=== PATIENT | male | born 1965 | race Caucasian/White ===

== ENCOUNTER 2017-11-08 08:06 | Day surgery (SDC) | payer BC, OTHER ==
[~2017-11-08 08:06] MED LIST: Lactated Ringers 1,000 ML IV SCH; Midazolam 1 MG/ML 2 ML SDV ONE; Propofol 200 MG/20 ML SDV ONE; fentaNYL 100 MCG/2 ML SDV ONE
--- NOTE | 2017-11-09 10:48 | OR ---
DATE OF PROCEDURE: 11/08/2017 PREOPERATIVE DIAGNOSIS: Colon cancer screening. POSTOPERATIVE DIAGNOSES: Diverticulosis. PROCEDURE: Colonoscopy to the cecum. SURGEON: Jimmy Vallecillo MD. ANESTHESIA: IV anesthesia with monitored anesthesia care. INDICATIONS: This 52-year-old white male is referred for a colonoscopy for colon cancer screening. He has never had a colonoscopic exam. I counseled him for the procedure, including risks and alternatives. He gave his informed consent to proceed. DESCRIPTION OF PROCEDURE: The patient was placed in the left lateral decubitus position. IV anesthesia was administered by the Anesthesia service. Time-out was held. A rectal exam was performed, which was unremarkable. The flexible video Olympus colonoscope was introduced through his anus, up his rectum, and out of his colon all way to the cecum. En route, we saw several left-sided diverticula. There was no bleeding or inflammation associated with any of them. Once the cecum was reached, the scope was slowly withdrawn, examining the mucosa throughout. No additional mucosal abnormalities were noted. The scope was retroflexed in the rectum with the distal rectum appearing unremarkable. The scope was straightened and removed. He tolerated the procedure well. Jimmy Vallecillo MD /[id number]
== END 2017-11-08 10:59 | disposition home or self-care (01) ==
LOC: JP.SDS 08:06
PROVIDERS: ATTEND Surgery
DX: Z12.11 Encounter for screening for malignant neoplasm of colon (principal); K57.30 Diverticulosis of large intestine without perforation or abscess without bleeding; Z88.6 Allergy status to analgesic agent; Z91.040 Latex allergy status; Z88.8 Allergy status to other drugs, medicaments and biological substances
CPT/HCPCS: 45378; J2250; J2704; J3010; J7120

== ENCOUNTER 2019-03-29 16:31 | Emergency (ER) | payer BC, OTHER ==
[2019-03-29] MEDS ORDERED: cefTRIAXone 1 GM in Sodium Chloride 0.9% 50 ML IV ONE (17:19)
[2019-03-29] MEDS ORDERED: Sodium Chloride 0.9% 10 ML Syringe FLUSH PRN (17:19)
[2019-03-29] MEDS ORDERED: Acetaminophen/oxyCODONE 325-5 MG Tab PO ONE (17:23)
--- NOTE | 2019-03-29 17:29 | EDM.PDOC ---
ED HPI GENERAL MEDICAL PROBLEM - General Chief Complaint: ENT Problem Stated Complaint: IV ANTIBOTICS FOR TOOTH Time Seen by Provider: 03/29/19 17:23 Source of Information: Reports: Patient History Limitations: Reports: No Limitations - History of Present Illness INITIAL COMMENTS - FREE TEXT/NARRATIVE: Pt was sent by Dr Mcnamara to have Iv antibiotics. He has an abcess of one of his front terth and now has developed marked facial swelling. Onset: Today, Sudden Duration: Hour(s): Location: Reports: Face, Other ( dental infection) Associated Symptoms: Reports: Fever/Chills Left Face/Facial Pain Score (Numeric/FACES): 9 - Related Data Allergies Allergy/AdvReac Type Severity Reaction Status Date / Time latex Allergy Mild Rash Verified 03/29/19 17:00 diphenhydramine Allergy Agitation Verified 03/29/19 17:00 [From Benadryl] indomethacin AdvReac Mild Diarrhea Verified 03/29/19 17:00 Home Meds: Home Meds Allopurinol [Zyloprim] 300 mg PO BID 04/13/13 [History] Fluticasone Propionate [Flovent] 1 puff IH BID 04/13/13 [History] Triamcinolone Acetonide [Kenalog 0.1% Crm] 80 gm .XX ASDIRECTED PRN 04/13/13 [ History] busPIRone [Buspar] 10 mg PO BID 11/28/13 [History] Indomethacin [Indocin] 50 mg PO TID PRN 11/04/17 [History] Past Medical History HEENT History: Reports: Impaired Vision Musculoskeletal History: Reports: Arthritis, Back Pain, Chronic, Gout Psychiatric History: Reports: Anxiety Endocrine/Metabolic History: Reports: Obesity/BMI 30+ Oncologic (Cancer) History: Reports: Non-Hodgkin's Lymphoma - Infectious Disease History Infectious Disease History: Reports: Chicken Pox, Measles, Mumps - Past Surgical History Head Surgeries/Procedures: Reports: None HEENT Surgical History: Reports: Adenoidectomy, Tonsillectomy Endocrine Surgical History: Reports: None Musculoskeletal Surgical History: Reports: None Oncologic Surgical History: Reports: Bone Marrow Aspiration Dermatological Surgical History: Reports: None Social & Family History - Family History Family Medical History: Noncontributory - Tobacco Use Smoking Status *Q: Never Smoker - Caffeine Use Caffeine Use: Reports: None - Recreational Drug Use Recreational Drug Use: No ED ROS ENT - Review of Systems Review Of Systems: See Below Constitutional: Reports: Chills HEENT: Reports: Dental Pain Respiratory: Reports: No Symptoms Cardiovascular: Reports: No Symptoms Endocrine: Reports: No Symptoms GI/Abdominal: Reports: No Symptoms : Reports: No Symptoms ED EXAM, ENT - Physical Exam Exam: See Below Text/Narrative:: pt arrived with marked facial swelling. He had pain in the ttoth-=-upper front and then developed the facial swelling. His dentist wants him to have iv antibiotic. She does plan to do an extraction on Wednesday of the 2 teeth. Exam Limited By: No Limitations General Appearance: Alert, Anxious, Moderate Distress Ears: Normal TMs Nose: Normal Inspection Mouth/Throat: Dental Abcess, Dental Pain, Dental Tenderness Head: Atraumatic Neck: Lymphadenopathy (L) Respiratory/Chest: No Respiratory Distress Cardiovascular: Regular Rate, Rhythm GI/Abdominal: Soft, Non-Tender Course - Vital Signs Last Recorded V/S: Last Vital Signs Temp 36.4 C 03/29/19 16:57 Pulse 67 03/29/19 16:57 Resp 16 03/29/19 16:57 BP 155/94 H 03/29/19 16:57 Pulse Ox 96 03/29/19 16:57 - Orders/Labs/Meds Orders: Active Orders 24 hr Category Date Time Status Acetaminophen/oxyCODONE [Percocet 325-5 MG] Med 03/29/19 17:23 Once 1 tab PO ONETIME ONE Sodium Chloride 0.9% [Saline Flush] Med 03/29/19 17:19 Ordered 10 ml FLUSH ASDIRECTED PRN cefTRIAXone [Rocephin] 1 gm Med 03/29/19 17:19 Ordered Sodium Chloride 0.9% [Normal Saline] 50 ml IV ONETIME Saline Lock Insert [OM.PC] Routine Oth 03/29/19 17:19 Ordered Medication Orders Ceftriaxone Sodium 1 gm/ (Sodium Chloride) 50 mls @ 100 mls/hr IV ONETIME ONE Stop: 03/29/19 17:48 Sodium Chloride (Saline Flush) 10 ml FLUSH ASDIRECTED PRN PRN Reason: Keep Vein Open Meds: Medications Generic Name Dose Route Start Last Admin Trade Name Freq PRN Reason Stop Dose Admin Ceftriaxone Sodium 1 gm/ 50 mls @ 100 mls/hr 03/29/19 17:19 Sodium Chloride IV 03/29/19 17:48 ONETIME ONE Sodium Chloride 10 ml 03/29/19 17:19 Saline Flush FLUSH ASDIRECTED PRN Keep Vein Open - Re-Assessments/Exams Free Text/Narrative Re-Assessment/Exam: 03/29/19 17:27 pt was given 1 gm of iv rocephen and will return tomorrow with another gram. Departure - Departure Time of Disposition: 17:28 Disposition: Home, Self-Care 01 Condition: Fair Clinical Impression: Dental infection - Discharge Information Referrals: PCP,None [Primary Care Provider] - Care Plan Goals: rtc tomorrw for 1 gram of rocephen, pt has a perscription from the dentist for norco and amoxicillin . He will start the amoxicillin tomorrow. - My Orders Last 24 Hours: My Active Orders 03/29/19 17:19 Sodium Chloride 0.9% [Saline Flush] 10 ml FLUSH ASDIRECTED PRN cefTRIAXone [Rocephin] 1 gm Sodium Chloride 0.9% [Normal Saline] 50 ml IV ONETIME Saline Lock Insert [OM.PC] Routine 03/29/19 17:23 Acetaminophen/oxyCODONE [Percocet 325-5 MG] 1 tab PO ONETIME ONE - Assessment/Plan Last 24 Hours: My Active Orders 03/29/19 17:19 Sodium Chloride 0.9% [Saline Flush] 10 ml FLUSH ASDIRECTED PRN cefTRIAXone [Rocephin] 1 gm Sodium Chloride 0.9% [Normal Saline] 50 ml IV ONETIME Saline Lock Insert [OM.PC] Routine 03/29/19 17:23 Acetaminophen/oxyCODONE [Percocet 325-5 MG] 1 tab PO ONETIME ONE
== END 2019-03-29 18:16 | disposition home or self-care (01) ==
LOC: JP.ED 16:31
DX: K04.7 Periapical abscess without sinus (principal); F41.9 Anxiety disorder, unspecified; M19.90 Unspecified osteoarthritis, unspecified site; E66.9 Obesity, unspecified; Z68.34 Body mass index [BMI] 34.0-34.9, adult; Z91.040 Latex allergy status; Z88.8 Allergy status to other drugs, medicaments and biological substances; Z79.899 Other long term (current) drug therapy
CPT/HCPCS: 96374; 99283; A9270; J0696; J7050

== ENCOUNTER 2022-12-19 20:11 | Emergency (ER) | payer BC, OTHER ==
[2022-12-19] MEDS ORDERED: Diphtheria,Pertussis(Acell),Tetanus Vaccine 0.5 ML Syringe IM ONE (20:53)
[2022-12-19] MEDS ORDERED: ceFAZolin 1 GM in Premix Bag 1 BAG IV STA (21:18)
[2022-12-19] MEDS ORDERED: Sodium Chloride 0.9% 10 ML Syringe FLUSH PRN (21:19)
[2022-12-19] MEDS ORDERED: ceFAZolin 1 GM in Sodium Chloride 0.9% 50 ML IV ONE (21:39)
== END 2022-12-19 22:37 | disposition home or self-care (01) ==
LOC: JP.ED 20:11
DX: S62.633B Displaced fracture of distal phalanx of left middle finger, initial encounter for open fracture (principal); E66.9 Obesity, unspecified; Z91.040 Latex allergy status; Z91.048 Other nonmedicinal substance allergy status; Z88.1 Allergy status to other antibiotic agents; Z88.8 Allergy status to other drugs, medicaments and biological substances; Z86.16 Personal history of COVID-19; Z68.34 Body mass index [BMI] 34.0-34.9, adult; Z23 Encounter for immunization; W23.0XXA Caught, crushed, jammed, or pinched between moving objects, initial encounter; Y99.0 Civilian activity done for income or pay
CPT/HCPCS: 73140; 90471; 90715; 96365; 99283; J0690; J3490